=== PATIENT | female | born 1955 | race Caucasian/White ===

== ENCOUNTER → 2020-09-10 | Outpatient (CLI) | payer BC ==
[~2020-09-10] MED LIST: CHOL10003 PO; FLUO20DR3 EACH EAR; FLUT9.9S NAS; LORA10TA75 PO; MULT-449 PO
== END | disposition home or self-care (01) ==
LOC: STAR 13:10
PROVIDERS: ATTEND Internal Medicine
DX: Z01.818 Encounter for other preprocedural examination (principal); G56.02 Carpal tunnel syndrome, left upper limb; Z20.822 Contact with and (suspected) exposure to COVID-19
CPT/HCPCS: 93005; U0003; U0005

== ENCOUNTER 2020-09-15 05:59 | Day surgery (SDC) | payer BC ==
[~2020-09-15] VITALS: Ht 167.6 cm; Wt 60.9 kg
[2020-09-15 07:06] VITALS: BP 161/77
[2020-09-15] MEDS ORDERED: MIDAZOLAM 1 MG/ML, 2ML ONE (07:22)
[2020-09-15] MEDS ORDERED: FENTANYL PF 100 MCG/2ML ONE (07:23)
[2020-09-15] MEDS ORDERED: CHLORHEXIDINE 15 ML UDC PO ONE (07:30)
[2020-09-15] MEDS ORDERED: LACTATED RINGERS 1,000 ML IV SCH (07:30)
[2020-09-15] MEDS ORDERED: EPINEPHRINE 1 MG/ML, 1ML ONE (07:42)
[2020-09-15] MEDS ORDERED: LIDOCAINE-MPF 1%, 5ML ONE (07:42)
[2020-09-15] MEDS ORDERED: BUPIVACAINE/PF 0.5% ONE (07:42)
[2020-09-15] MEDS ORDERED: CEFAZOLIN 1,000 MG ONE (07:52)
[2020-09-15] MEDS ORDERED: PROPOFOL 10 MG/ML, 20ML ONE (07:52)
[2020-09-15] MEDS ORDERED: ONDANSETRON 2MG/ML, 2ML ONE (07:52)
[2020-09-15] MEDS ORDERED: DEXAMETHASONE 4 MG/ML, 1ML ONE (07:52)
[2020-09-15] MEDS ORDERED: hydrALAzine 20 MG/ML, 1ML IV PRN (08:00)
[2020-09-15] MEDS ORDERED: PROMETHAZINE 25 MG/ML, 1ML IVPush PRN (08:00)
[2020-09-15] MEDS ORDERED: DIPHENHYDRAMINE 50 MG/ML, 1ML IVPush PRN (08:00)
[2020-09-15] MEDS ORDERED: HALOPERIDOL 5 MG/ML IV PRN (08:00)
[2020-09-15] MEDS ORDERED: ONDANSETRON 2MG/ML, 2ML IVPush PRN (08:00)
[2020-09-15] MEDS ORDERED: HYDROmorphone 1 MG/ML, 1ML INJ IVPush PRN (08:00)
[2020-09-15] MEDS ORDERED: METOPROLOL 1 MG/ML, 5ML IV PRN (08:00)
[2020-09-15] MEDS ORDERED: ACETAMINOPHEN 325 MG TABLET PO PRN (08:00)
[2020-09-15] MEDS ORDERED: METOCLOPRAMIDE 5 MG/ML, 2ML IVPush PRN (08:00)
[2020-09-15] MEDS ORDERED: FENTANYL PF 100 MCG/2ML IV PRN (08:00)
[2020-09-15] MEDS ORDERED: EPHEDRINE 50 MG/ML, 1ML IVPush PRN (08:00)
[2020-09-15] MEDS ORDERED: MEPERIDINE/PF 25MG/0.5ML IVPush PRN (08:00)
[2020-09-15] MEDS ORDERED: OXYcodone 5 MG/5 ML ORAL.SOL UDC PO PRN (08:00)
[2020-09-15] MEDS ORDERED: DIAZEPAM 5 MG/ML, 2ML IVPush PRN (08:00)
[2020-09-15] MEDS ORDERED: LABETALOL 5MG/ML, 20ML IV PRN (08:00)
== END 2020-09-15 10:25 | disposition home or self-care (01) ==
LOC: OUT 05:59
PROVIDERS: ATTEND Orthopaedic Surgery Hand Surgery
DX: G56.02 Carpal tunnel syndrome, left upper limb (principal); G56.22 Lesion of ulnar nerve, left upper limb; M19.90 Unspecified osteoarthritis, unspecified site; Z79.899 Other long term (current) drug therapy; Z88.0 Allergy status to penicillin
CPT/HCPCS: 29848; 64718; J0171; J0690; J1100; J2250; J2405; J2704; J3010; J7120